=== PATIENT | female | born 1945 | race Caucasian/White ===

== ENCOUNTER 2017-06-04 11:41 | Emergency (ER) | payer MEDICARE ==
[~2017-06-04] VITALS: Ht 157.5 cm; Wt 54.6 kg
[2017-06-04 11:48] VITALS: BP 133/69; PULSE 78; RESP 16; TEMP 97.6; O2SAT 97
[2017-06-04] MEDS ORDERED: LORA-474 PO (12:09)
[2017-06-04] MEDS ORDERED: ZOCO40TA PO (12:09)
[2017-06-04] MEDS ORDERED: LOPE-1 PO (12:09)
[2017-06-04] MEDS ORDERED: ASPI81CH6 CHEW (12:09)
[2017-06-04] MEDS ORDERED: FLUT1SPR5 EACH NARE (12:09)
[2017-06-04] MEDS ORDERED: VENTAER INH (12:09)
[2017-06-04] MEDS ORDERED: NITR1SUB3 SL (12:09)
[2017-06-04] MEDS ORDERED: COZA25TA PO (12:09)
[2017-06-04] MEDS ORDERED: ACYC-101 PO (12:09)
[2017-06-04] MEDS ORDERED: PEPT262S PO (12:09)
[2017-06-04] MEDS ORDERED: ADVA250A INH (12:09)
[2017-06-04] MEDS ORDERED: METO50TA PO (12:09)
[2017-06-04] MEDS ORDERED: CYCL10TA PO (12:09)
[2017-06-04] MEDS ORDERED: AMLO10 PO (12:09)
[2017-06-04] MEDS ORDERED: METO100T PO (12:09)
[2017-06-04] MEDS ORDERED: SODIUM CHLOR 0.9% 1000 ML INJ 1,000 ML IV ONE (12:15)
[2017-06-04] MEDS ORDERED: ONDANSETRON HCL 4 MG/2 ML VIAL IVP ONE (12:15)
--- NOTE | 2017-06-04 12:21 | PD ---
HPI Chief Complaint: Abdominal Pain Time Seen by Provider: 12:06 Travel History International Travel<30 days: No Contact w/Intl Traveler<30days: No Traveled to known affect area: No History of Present Illness HPI The patient was seen and examined in the presence of the nurse. This patient complains of diarrhea. She has frequent diarrhea on a daily basis. She has history of ulcerative colitis. She has been having diarrhea for 3 solid weeks. She does not have vomiting and occasionally has nausea. No rectal bleeding. She denies fever. She is visiting from [place] and was supposed to fly home today but due to the diarrhea did not get to her flight. Symptoms moderately severe. She does have chronic back pain on a daily basis which is unchanged today. No alleviating factors. No exacerbating factors. PFSH Past Medical History Cancer: Yes (breast) COPD: Yes Gastrointestinal Disorders: Yes (IBS, ULCERATIVE COLITIS) Tetanus Vaccination: Unknown Influenza Vaccination: Yes ?: Not Past Surgical History Abdominal Surgery: Yes (bowel resection ) Appendectomy: No Cholecystectomy: No Hysterectomy: Yes Other Surgery: Yes (bilat mastectomy) Social History Alcohol Use: No Tobacco Use: Yes (1/2 ppd) Substance Use: No Allergies-Medications (Allergen,Severity, Reaction): Coded Allergies: Tetracyclines (Verified Allergy, Unknown, 06/04/17) acetaminophen (Verified Allergy, Unknown, 06/04/17) amitriptyline (Verified Allergy, Unknown, 06/04/17) balsalazide (Verified Allergy, Unknown, 06/04/17) ciprofloxacin (Verified Allergy, Unknown, 06/04/17) doxycycline (Verified Allergy, Unknown, 06/04/17) erythromycin base (Verified Allergy, Unknown, 06/04/17) hydrocodone (Verified Allergy, Unknown, 06/04/17) lisinopril (Verified Allergy, Unknown, 06/04/17) mesalamine (Verified Allergy, Unknown, 06/04/17) nicotine (Verified Allergy, Unknown, 06/04/17) nitrofurantoin (Verified Allergy, Unknown, 06/04/17) sulfamethoxazole (Verified Allergy, Unknown, 06/04/17) tramadol (Verified Allergy, Unknown, 06/04/17) trimethoprim (Verified Allergy, Unknown, 06/04/17) Reported Meds & Prescriptions Reported Meds & Active Scripts Active Reported Zovirax (Acyclovir) 800 Mg Tab 800 Mg PO TID Flexeril (Cyclobenzaprine HCl) 10 Mg Tab 10 Mg PO TID Ventolin Hfa 18 GM Inh (Albuterol Sulfate) 90 Mcg/Act Aer 2 Puff INH Q4-6H PRN Flonase Nasal [place] (Fluticasone Nasal [place]) 50 Mcg/Act [place] 50 Mcg EACH NARE BID Pepto-Bismol Liq (Bismuth Subsalicylate) 262 Mg/15 Ml Susp 15 Ml PO PRN Do not exceed 8 doses (240 mL or 16 tbsp) in 24 hours. Imodium A-D (Loperamide HCl) 2 Mg Capsule 2 Mg PO DIRECTED PRN One capsule after each loose stool. Not to exceed 8 tablets per day. Cozaar (Losartan Potassium) 25 Mg Tab 25 Mg PO DAILY Advair Diskus Inh (Fluticasone-Salmeterol Inh) 250-50 Mcg/Blist Aer 1 Puff INH BID Rinse mouth after use. Ativan (Lorazepam) 1 Mg Tab 1 Mg PO Q8H PRN Zocor (Simvastatin) 40 Mg Tab 40 Mg PO DAILY Nitroglycerin SL (Nitroglycerin) 0.4 Mg Subl 0.4 Mg SL DIRECTED PRN ONE TABLET UNDER THE TONGUE NEEDED FOR CHEST PAIN, MAY REPEAT EVERY FIVE MINUTES FOR A TOTAL OF 3 DOSES OR CALL 911 IF NO RELIEF Aspirin Low Dose (Aspirin) 81 Mg Chew 81 Mg CHEW DAILY Norvasc (Amlodipine Besylate) 10 Mg Tab 10 Mg PO DAILY Metoprolol Tartrate 100 Mg Tab 100 Mg PO BID Metoprolol Tartrate 50 Mg Tab 50 Mg PO BID Review of Systems General / Constitutional: No: Fever Eyes: No: Visual changes HENT: No: Headaches Cardiovascular: No: Chest Pain or Discomfort Respiratory: No: Shortness of Breath Gastrointestinal: Positive: Nausea, Diarrhea, No: Abdominal Pain Genitourinary: No: Dysuria Musculoskeletal: Positive: Weakness, Pain Skin: No Rash Neurologic: Positive: Weakness Psychiatric: No: Depression Endocrine: No: Polydipsia Hematologic/Lymphatic: No: Easy Bruising Physical Exam Narrative GENERAL: Well-nourished, well-developed patient in no apparent distress. SKIN: Focused skin assessment reveals no rash and nodules. Skin is Warm and dry. HEAD: Atraumatic. Normocephalic. EYES: Pupils equal and round. No scleral icterus. No injection or drainage. ENT: No nasal bleeding or discharge. Mucous membranes pink and moist. NECK: Trachea midline. No JVD. CARDIOVASCULAR: Regular rate and rhythm. No murmur appreciated. RESPIRATORY: No accessory muscle use. Clear to auscultation. Breath sounds equal bilaterally. GASTROINTESTINAL: Abdomen soft, non-tender, nondistended. Hepatic and splenic margins not palpable. MUSCULOSKELETAL: No obvious deformities. No clubbing. No cyanosis. No edema. Chest wall reveals bilateral mastectomy status NEUROLOGICAL: Awake and alert. No obvious cranial nerve deficits. Motor grossly within normal limits. Normal speech. PSYCHIATRIC: Appropriate mood and affect; insight and judgment normal. Data Data Last Documented VS Vital Signs Date Time Temp Pulse Resp B/P (MAP) Pulse Ox O2 Delivery O2 Flow Rate FiO2 06/04/17 11:48 97.6 78 16 133/69 (90) 97 Orders Orders Complete Blood Count With Diff (06/04/17 11:55) Comprehensive Metabolic Panel (06/04/17 11:55) Urinalysis - C+S If Indicated (06/04/17 11:55) Iv Access Insert/Monitor (06/04/17 11:55) Oxygen Administration (06/04/17 11:55) Oximetry (06/04/17 11:55) Lipase (06/04/17 11:55) Sodium Chlor 0.9% 1000 Ml Inj (Ns 1000 M (06/04/17 12:15) Ondansetron Inj (Zofran Inj) (06/04/17 12:15) Magnesium (Mg) (06/04/17 12:30) Urine Culture (06/04/17 12:40) Labs Laboratory Tests Test 06/04/17 12:30 06/04/17 12:40 White Blood Count 8.5 TH/MM3 Red Blood Count 4.40 MIL/MM3 Hemoglobin 13.2 GM/DL Hematocrit 39.3 % Mean Corpuscular Volume 89.3 FL Mean Corpuscular Hemoglobin 29.9 PG Mean Corpuscular Hemoglobin Concent 33.5 % Red Cell Distribution Width 12.6 % Platelet Count 457 TH/MM3 Mean Platelet Volume 7.1 FL Neutrophils (%) (Auto) 77.9 % Lymphocytes (%) (Auto) 12.9 % Monocytes (%) (Auto) 8.0 % Eosinophils (%) (Auto) 1.0 % Basophils (%) (Auto) 0.2 % Neutrophils # (Auto) 6.6 TH/MM3 Lymphocytes # (Auto) 1.1 TH/MM3 Monocytes # (Auto) 0.7 TH/MM3 Eosinophils # (Auto) 0.1 TH/MM3 Basophils # (Auto) 0.0 TH/MM3 CBC Comment DIFF FINAL Differential Comment Blood Urea Nitrogen 5 MG/DL Creatinine 0.48 MG/DL Random Glucose 92 MG/DL Total Protein 7.5 GM/DL Albumin 3.0 GM/DL Calcium Level 8.6 MG/DL Magnesium Level 2.0 MG/DL Alkaline Phosphatase 124 U/L Aspartate Amino Transf (AST/SGOT) 9 U/L Alanine Aminotransferase (ALT/SGPT) 14 U/L Total Bilirubin 0.3 MG/DL Sodium Level 138 MEQ/L Potassium Level 3.6 MEQ/L Chloride Level 107 MEQ/L Carbon Dioxide Level 26.2 MEQ/L Anion Gap 5 MEQ/L Estimat Glomerular Filtration Rate 127 ML/MIN Lipase 68 U/L Urine Collection Type CLEAN CATCH Urine Color YELLOW Urine Turbidity CLEAR Urine pH 6.0 Urine Specific [place] 1.010 Urine Protein NEG mg/dL Urine Glucose (UA) NEG mg/dL Urine Ketones NEG mg/dL Urine Occult Blood NEG Urine Nitrite NEG Urine Bilirubin NEG Urine Urobilinogen 0.2 MG/DL Urine Leukocyte Esterase TRACE Urine WBC 15-19 /hpf Urine WBC Clumps OCC Urine Squamous Epithelial Cells 0-5 /hpf Urine Renal Epithelial Cells 0-5 /hpf Microscopic Urinalysis Comment CULTURE INDICATED Urine Collection Time 14:40 MDM Medical Decision Making Medical Screen Exam Complete: Yes Emergency Medical Condition: Yes Medical Record Reviewed: Yes Differential Diagnosis Flare of colitis, dehydration, electrolyte abnormality Narrative Course I have reviewed the patient's electronic medical record. IV placed in the liter of normal saline given along with Zofran Labs sent Her abdomen is soft and benign and nontender Her chronic back pain is unchanged today and she has had no injury fever or neurologic deficit She has history of low sodium and potassium and magnesium from her diarrhea so those things will all be checked. I reviewed the labs with the patient. Her electrolytes are normal. CBC is normal. She is hydrated and stable for outpatient follow-up. Has not had any diarrhea while here Diagnosis Primary Impression: Diarrhea Qualified Codes: R19.7 - Diarrhea, unspecified Additional Impression: Generalized weakness Additional Instructions: The patient was advised to follow up with their physician and return if they worsen. Med/Other Pt SpecificInfo: Other Disposition: 01 DISCHARGE HOME Condition: Stable Kai Rogel MD Jun 04, 2017 12:21
[2017-06-04 12:42] LABS: AUTOMATED NEUTROPHIL # 6.6 TH/MM3 (1.8-7.7); BASOPHIL % 0.2 % (0.0-2.0); EOSINOPHIL # 0.1 TH/MM3 (0-0.4); HEMATOCRIT 39.3 % (35.0-46.0); HEMOGLOBIN 13.2 GM/DL (11.6-15.3); LYMPH % 12.9 % (9.0-44.0); LYMPHOCYTE # 1.1 TH/MM3 (1.0-4.8); MEAN CELL VOLUME 89.3 FL (80.0-100.0); MEAN CORPUSCULAR HEMOGLOBIN 29.9 PG (27.0-34.0); MEAN CORPUSCULAR HGB CONC 33.5 % (32.0-36.0); MEAN PLATELET VOLUME 7.1 FL (7.0-11.0); MONOCYTE # 0.7 TH/MM3 (0-0.9); NEUT % 77.9 % (16.0-70.0); PLATELET COUNT 457 TH/MM3 (150-450); RED CELL DISTRIBUTION WIDTH 12.6 % (11.6-17.2); WHITE BLOOD COUNT 8.5 TH/MM3 (4.0-11.0)
[2017-06-04 12:52] LABS: BILIRUBIN, URINE NEG (NEG); BLOOD, URINE NEG (NEG); GLUCOSE,URINE NEG (NEG); KETONE, URINE NEG (NEG); NITRITE,URINE NEG (NEG); URINE COLOR YELLOW (YELLW/STRAW); URINE LEUKOCYTE ESTERASE TRACE (NEG)
[2017-06-04 12:53] LABS: CHLORIDE 107 MEQ/L (98-107); SODIUM (NA) 138 MEQ/L (136-145)
[2017-06-04 12:56] LABS: CALCIUM 8.6 MG/DL (8.5-10.1)
[2017-06-04 12:57] LABS: WBC, URINE 15-19 /hpf (0-5)
[2017-06-04 12:57] LABS: BICARBONATE 26.2 MEQ/L (21.0-32.0); BLOOD UREA NITROGEN 5 MG/DL (7-18); GLUCOSE,RANDOM 92 MG/DL (74-106)
[2017-06-04 12:58] LABS: RENAL EPITHELIAL CELLS 0-5 /hpf; SQUAMOUS EPITHELIAL CELL URINE 0-5 /hpf (0-5); WHITE BLOOD CELL CLUMPS OCC
[2017-06-04 12:59] LABS: ALT (GPT) 14 U/L (10-53); AST (GOT) 9 U/L (15-37)
[2017-06-04 13:00] LABS: CREATININE 0.48 MG/DL (0.50-1.00); GLOMERULAR FILTRATION RATE 127 ML/MIN (>89)
[2017-06-04 13:01] LABS: TOTAL BILIRUBIN ADULT 0.3 MG/DL (0.2-1.0); TOTAL PROTEIN 7.5 GM/DL (6.4-8.2)
[2017-06-04 13:02] LABS: ALKALINE PHOSPHATASE 124 U/L (45-117)
[2017-06-04 14:47] VITALS: BP 115/79; PULSE 62; RESP 20; O2SAT 92
[2017-06-04 14:48] VITALS: O2SAT 92
== END 2017-06-04 15:09 | disposition home or self-care (01) ==
LOC: PHED 11:41
DX: R19.7 Diarrhea, unspecified (principal); R53.1 Weakness; N39.0 Urinary tract infection, site not specified; G89.29 Other chronic pain; M54.9 Dorsalgia, unspecified; J44.9 Chronic obstructive pulmonary disease, unspecified; F17.210 Nicotine dependence, cigarettes, uncomplicated; B96.20 Unspecified Escherichia coli [E. coli] as the cause of diseases classified elsewhere; Z16.11 Resistance to penicillins; Z16.23 Resistance to quinolones and fluoroquinolones; Z85.3 Personal history of malignant neoplasm of breast
CPT/HCPCS: 80053; 81001; 83690; 83735; 85025; 87077; 87086; 87186; 96374; 99284; J2405; J7030